=== PATIENT | male | born 1990 | race Caucasian/White ===

== ENCOUNTER 2019-05-22 21:24 | Emergency (ER) | payer BC, OTHER ==
[~2019-05-22] VITALS: Ht 185.4 cm; Wt 60.6 kg
[2019-05-22 21:25] VITALS: BP 130/81
[2019-05-22] MEDS ORDERED: HYDROcodone/APAP 5/325 TABLET PO STA (21:42)
[2019-05-22] MEDS ORDERED: HYDROcodone/APAP 5/325 TABLET ONE (21:42)
[2019-05-22] MEDS ORDERED: KETOROLAC 30 MG/1 ML ONE (21:43)
[2019-05-22] MEDS ORDERED: KETOROLAC 30 MG/1 ML IM ONE (22:00)
[2019-05-22] MEDS ORDERED: HYDROcodone/APAP 5/325 TABLET PO ONE (22:00)
--- NOTE | 2019-05-22 22:30 | NUR ---
D/C INSTRUCTIONS, MEDS & F/U APPT RV'WD WITH PT, HE VERBALIZES UNDERSTANDING. RX GIVEN X2. ASSISTED PT OUT OF ED VIA WC WITH GIRLFRIEND.
== END 2019-05-22 22:33 | disposition home or self-care (01) ==
LOC: ED 22:32
DX: M13.171 Monoarthritis, not elsewhere classified, right ankle and foot (principal); M10.9 Gout, unspecified; Z72.89 Other problems related to lifestyle
CPT/HCPCS: 73630; 96372; 99283; J1885